=== PATIENT | female | born 2000 | race American Indian/Alaskan Native ===

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

== ENCOUNTER 2019-07-14 19:37 | Outpatient (CLI) | payer MEDICAID | END 2019-07-14 21:56 | disposition home or self-care (01) | LOC: TRG 19:37 → LD 19:38 → TRG 21:56 | PROVIDERS: ATTEND Obstetrics & Gynecology | DX: Z53.9 Procedure and treatment not carried out, unspecified reason (principal) ==

== ENCOUNTER 2019-07-15 01:25 | Inpatient (IN) | payer MEDICAID ==
[2019-07-15] MEDS ORDERED: TERBUTALINE 1 MG/1 ML INJ SUB-Q PRN (04:04)
[2019-07-15] MEDS ORDERED: LIDOCAINE (2%) 20 MG/1 ML VIAL 20 ML MDV INFILTRATI ONE (04:04)
[2019-07-15] MEDS ORDERED: TERBUTALINE 1 MG/1 ML INJ IVP PRN (04:04)
[2019-07-15] MEDS ORDERED: AMPICILLIN/NS 2 GM/100 ML 2 GM/100 ML BAG IV ONE (04:04)
[2019-07-15] MEDS ORDERED: ePHEDrine SULFATE 50 MG/1 ML INJ IV PRN ×2 (04:04→08:07)
[2019-07-15] MEDS ORDERED: OXYTOCIN 20 UNIT/1000ML DRIP 20 UNITS/1,000 ML BAG IV SCH ×2 (05:00→14:00)
[2019-07-15] MEDS: LACTATED RINGERS 1,000 ML IV SCH ×2 (06:10→09:28)
[2019-07-15] MEDS ORDERED: fentaNYL 100 MCG/2 ML INJ ONE (07:03)
[2019-07-15] MEDS ORDERED: fentaNYL 100 MCG/2 ML INJ IV ONE (07:30)
[2019-07-15 07:39] LABS: Hematocrit 30.5 % (30.3-42.9); Hemoglobin 9.9 gm/dl (10.1-14.3); Mean Corpuscular HGB Conc 32 % (30-34); Mean Corpuscular Volume 84 fl (79-97); Platelet Count 158 K/mm3 (140-440); Red Blood Count 3.64 M/mm3 (3.65-5.03); Red Cell Distribution Width 15.4 % (13.2-15.2)
[2019-07-15] MEDS ORDERED: NALOXONE 2 MG/2 ML INJ IV PRN (08:07)
--- NOTE | 2019-07-15 08:07 | Anesthesia Consultation ---
Anesthesia Consult and Med Hx Date of service: 07/15/19 - Airway Anesthetic Teeth Evaluation: Good ROM Head & Neck: Adequate Mental/Hyoid Distance: Adequate Mallampati Class: Class II Intubation Access Assessment: Good - Pulmonary Exam CTA: Yes - Cardiac Exam Cardiac Exam: RRR - Pre-Operative Health Status ASA Pre-Surgery Classification: ASA1, Emergency Proposed Anesthetic Plan: Epidural - Pulmonary Hx Asthma: No COPD: No Hx Pneumonia: No - Cardiovascular System Hx Hypertension: No - Central Nervous System Hx Seizures: No Hx Psychiatric Problems: No - Endocrine Hx Renal Disease: No Hx End Stage Renal Disease: No Hx Hypothyroidism: No Hx Hyperthyroidism: No - Hematic Hx Anemia: No Hx Sickle Cell Disease: No - Other Systems Hx Alcohol Use: No
[2019-07-15] MEDS ORDERED: BUPIVACAINE/PF (0.25%) 2.5 MG/ML 10 ML VIAL INFILTRATI ONE (08:11)
--- NOTE | 2019-07-15 08:37 | History and Physical Report ---
History of Present Illness Date of examination: 07/15/19 Date of admission: 07/15/19 04:56 Chief complaint: Labor History of present illness: Pt is a 19yo BF EDC 07/19/19; EGA 39 3/7 weeks presents to L&D complaining of RUC's q 3-4 mins. She received care at [facility] since 12 weeks and course has been unremarkable. records are available and GBS is Negative. Past History Past Medical History: no pertinent history Past Surgical History: no surgical history Family/Genetic History: none Social history: no significant social history, single - Obstetrical History Expected Date of Delivery: 07/19/19 Actual Gestation: 39 Week(s) 3 Day(s) : 1 Medications and Allergies Allergies Allergy/AdvReac Type Severity Reaction Status Date / Time No Known Allergies Allergy Verified 11/23/18 08:18 Home Medications Medication Instructions Recorded Confirmed Last Taken Type Vit-Fe Fumar-FA [ 1 tab PO QDAY 07/15/19 07/15/19 1 Day Ago History Vitamin] ~07/14/19 Active Meds: Active Medications Ephedrine Sulfate (Ephedrine Sulfate) 10 mg IV Q2M PRN PRN Reason: Hypotension Ephedrine Sulfate (Ephedrine Sulfate) 10 mg IV Q2M PRN PRN Reason: Hypotension Oxytocin/Sodium Chloride (Pitocin/Ns 20 Unit/1000ml Drip) 20 units in 1,000 mls @ 125 mls/hr IV DIRECT AALIYAH Lactated Ringer's (Lactated Ringers) 1,000 mls @ 125 mls/hr IV DIRECT AALIYAH Last Admin: 07/15/19 06:10 Dose: 1,200 mls/hr Documented by: Ampicillin Sodium (Ampicillin/Ns 1 Gm/50 Ml) 1 gm in 50 mls @ 100 mls/hr IV Q4HR AALIYAH; Protocol Fentanyl/Bupivacaine/Sodium Chlor (Fentanyl-Bupiv 2 Mcg/Ml-0.125%) 200 mcg in 100 mls @ 12 mls/hr EPIDURAL TITR AALIYAH; Protocol Naloxone HCl (Naloxone) 0.2 mg IV Q5M PRN PRN Reason: Respiratory sedation Terbutaline Sulfate (Brethine) 0.25 mg SUB-Q ONCE PRN PRN Reason: Hyperstimulation/Hypertonicity Terbutaline Sulfate (Brethine) 0.25 mg IVP ONCE PRN PRN Reason: Hyperstimulation/Hypertonicity Review of Systems All systems: negative - Vital Signs Vital signs: Vital Signs Pulse BP 77 143/94 07/15/19 01:44 07/15/19 01:44 Temp Pulse Resp BP Pulse Ox 98.9 F 78 142/81 100 07/15/19 05:20 07/15/19 08:32 07/15/19 08:31 07/15/19 08:32 - Physical Exam Breasts: Positive: deferred Cardiovascular: Regular rate Lungs: Positive: Clear to auscultation Genitourinary (Female): Positive: normal external genitalia Vagina: Positive: normal moisture Uterus: Positive: enlarged Extremities: Positive: normal - Obstetrical FHR: category 1 Uterine Contraction Monitor Mode: External Cervical Dilatation: 6 (per nurse) Cervical Effacement Percentage: 90 (per nurse) station: -1 Uterine Contraction Pattern: Regular Uterine Tone Measurement Phase: Contraction Uterine Contraction Intensity: Strong/Firm Results Result Diagrams: 07/15/19 07:04 Abnormal lab results 07/15/19 Range/Units 07:04 WBC 12.7 H (4.5-11.0) K/mm3 RBC 3.64 L (3.65-5.03) M/mm3 Hgb 9.9 L (10.1-14.3) gm/dl MCH 27 L (28-32) pg RDW 15.4 H (13.2-15.2) % All other labs normal. Assessment and Plan - Patient Problems (1) 39 weeks gestation of Onset Date: 07/15/19 Current Visit: Yes Status: Acute Plan to address problem: A: IUP @ 39 3/7 weeks in labor Asymptomatic anemia P: Admit to L&D for expectant vaginal delivery (2) Chronic blood loss anemia Onset Date: 07/15/19 Current Visit: Yes Status: Acute
[2019-07-15] MEDS ORDERED: fentaNYL-BUPIV 2 MCG/ML-0.125% 200 MCG/100 ML BAG EPIDURAL SCH (09:00)
[2019-07-15] MEDS: AMPICILLIN/NS 1 GM/50 ML 1 GM/50 ML BAG IV SCH ×2 (09:43→13:06)
[2019-07-15] MEDS ORDERED: OXYTOCIN DRIP 30 UNITS/500 ML BAG IV SCH (12:00)
--- NOTE | 2019-07-15 13:55 | Procedure Note ---
OB Delivery Note - Delivery Date of Delivery: 07/15/19 Surgeon: NEHA MTZ Estimated blood loss: 200cc - Vaginal Delivery presentation: vertex Delivery position: OA Intrapartum events: PROM->1hr before delivery, meconium Delivery induction: none Delivery augmentation: rupture of membranes, pitocin Delivery monitor: external FHT, external uterine Route of delivery: Delivery placenta: spontaneous Delivery cord: 3 umbilical vessels Episiotomy: none Delivery laceration: 2nd degree (perineal) Delivery repair: vicryl Anesthesia: epidural Delivery comments: delivered OA and placed on Mom's chest for [id number] bonding and delayed cord clamping, cut by Dad - Infant A at 1 minute: 8 at 5 minutes: 9 Gender: Female (4011gms)
[2019-07-15] MEDS ORDERED: WITCH HAZEL/ GLYCERIN PAD TP PRN (13:59)
[2019-07-15] MEDS ORDERED: PROMETHAZINE 25 MG TAB PO PRN (13:59)
[2019-07-15] MEDS ORDERED: MAGNESIUM HYDROXIDE (MOM) ORAL LIQD UDC PO PRN (13:59)
[2019-07-15] MEDS ORDERED: LANOLIN/ZINC/DIMETHICONE (LANSINOH) 7 GM TP PRN (13:59)
[2019-07-15] MEDS ORDERED: PROMETHAZINE 25 MG RECT SUPP PR PRN (13:59)
[2019-07-15] MEDS ORDERED: ACETAMINOPHEN 325 MG TAB PO PRN (13:59)
[2019-07-15] MEDS ORDERED: ONDANSETRON 4 MG/2 ML INJ IV PRN (13:59)
[2019-07-15] MEDS ORDERED: diphenhydrAMINE 25 MG CAP PO PRN (13:59)
[2019-07-15] MEDS: IBUPROFEN 600 MG TAB PO SCH ×2 (16:00→23:44)
[2019-07-15] MEDS: HYDROcodone/ACETAMINOPHEN 5-325 MG TAB PO PRN (18:16)
[2019-07-15] MEDS: DOCUSATE SODIUM 100 MG CAP PO SCH (23:44)
[2019-07-15] MEDS: FERROUS SULFATE 325 MG TAB PO SCH (23:44)
[2019-07-16 04:28] LABS: Hematocrit 25.6 % (30.3-42.9); Hemoglobin 8.1 gm/dl (10.1-14.3)
[2019-07-16] MEDS: IBUPROFEN 600 MG TAB PO SCH ×3 (05:26→21:24)
[2019-07-16] MEDS: PRENATAL VIT27-FE FUMARATE-FOLIC ACID VIT TAB PO SCH (09:31)
[2019-07-16] MEDS: FERROUS SULFATE 325 MG TAB PO SCH ×2 (09:31→21:24)
[2019-07-16] MEDS: DOCUSATE SODIUM 100 MG CAP PO SCH ×2 (09:31→21:24)
--- NOTE | 2019-07-16 13:54 | Progress Note ---
Assessment and Plan - Patient Problems (1) 39 weeks gestation of Onset Date: 07/15/19 Current Visit: Yes Status: Resolved (2) Chronic blood loss anemia Onset Date: 07/15/19 Current Visit: Yes Status: Chronic (3) (normal spontaneous vaginal delivery) Onset Date: 07/16/19 Current Visit: Yes Status: Resolved Plan to address problem: A: S/P - PPD #1 Doing well Asymptomatic anemia - stable P: May go home tomorrow. Subjective - Subjective Date of service: 07/16/19 Principal diagnosis: s/p - PPD #1 Interval history: Pt is feeling well without complaints. Bleeding improved. Patient reports: appetite normal, voiding normally, dizzy ambulation, flatus, a mbulating normally, no nauseated : doing well, nursing well, bottle feeding Objective - Vital Signs Latest vital signs: Vital Signs Temp Pulse Resp BP BP Pulse Ox 07/16/19 07:55 98 F 81 20 122/81 07/15/19 21:43 98.0 F 79 20 124/83 97 07/15/19 18:13 98.3 F 07/15/19 16:05 100.2 F H 80 146/88 99 07/15/19 14:17 87 99 07/15/19 14:12 102 H 100 07/15/19 14:07 84 100 07/15/19 14:02 88 98 07/15/19 13:58 75 159/83 07/15/19 13:57 89 100 07/15/19 13:56 93 H 158/83 Intake and Output 07/15/19 07/16/19 07/16/19 22:59 06:59 14:59 Intake Total 240 240 120 Output Total 1950 800 600 Balance -6884 -492 -480 Intake: Oral 240 240 120 Output: Urine 1950 800 600 Void 1950 800 600 Other: Total, Intake Amount 240 240 120 Total, Output Amount 600 800 600 # Voids Void 1 - Exam Breasts: Present: deferred Abdomen: Present: normal appearance, soft Uterus: Present: normal, firm, fundal height below umbilicus Extremities: Present: normal - Labs Labs: Abnormal lab results 07/16/19 Range/Units 04:05 Hgb 8.1 L (10.1-14.3) gm/dl Hct 25.6 L (30.3-42.9) % Laboratory Tests 07/15/19 07/15/19 07/15/19 07:04 07:04 07:04 WBC 12.7 H RBC 3.64 L Hgb 9.9 L Hct 30.5 MCV 84 MCH 27 L MCHC 32 RDW 15.4 H Plt Count 158 Syphilis IgG Antibody Non-reactive Blood Type A POSITIVE Antibody Screen Negative 07/16/19 04:05 WBC RBC Hgb 8.1 L Hct 25.6 L MCV MCH MCHC RDW Plt Count Syphilis IgG Antibody Blood Type Antibody Screen
--- NOTE | 2019-07-16 13:56 | Post Anesthesia Evaluation ---
- Post Anesthesia Evaluation Patient Participated: Yes Airway Patent: Yes Stable Respiratory Function: Yes Nausea/Vomiting: No Temp > 96.8F: Yes Pain Manageable: Yes Adequeate Hydration: Yes Anesthesia Complications: No Block Receding Appropriately: Yes Patient on Ventilator: No
[2019-07-16] MEDS ORDERED: MEASLES, MUMPS & RUBELLA 12,500 UNIT/0.5 ML VACCINE SUB-Q ONE (13:59)
[2019-07-16] MEDS ORDERED: TETANUS,DIPH,PERTUSS(ACELL) VACCINE 0.5 ML SYRINGE IM ONE (13:59)
[2019-07-16] MEDS: HYDROcodone/ACETAMINOPHEN 5-325 MG TAB PO PRN (15:52)
[2019-07-17] MEDS: IBUPROFEN 600 MG TAB PO SCH ×2 (06:36→12:44)
--- NOTE | 2019-07-17 08:42 | Discharge Summary ---
Providers - Providers Date of Admission: 07/15/19 04:56 Date of discharge: 07/17/19 Attending physician: NEHA MTZ Primary care physician: NEHA MTZ Hospitalization Reason for admission: active labor, rupture of membranes, IUP at term Delivery: Episiotomy: none Laceration: 2nd degree (perineal) Incision: normal Other procedures: none complications: none Discharge diagnosis: IUP at term delivered [place] baby: female Hospital course: Unremarkable. Condition at discharge: Good Disposition: DC-01 TO HOME OR SELFCARE - Discharge Diagnoses (1) 39 weeks gestation of Status: Resolved (2) Chronic blood loss anemia Status: Chronic (3) (normal spontaneous vaginal delivery) Status: Resolved Plan - Discharge Medications Prescriptions: Ferrous Sulfate [Feosol 325 MG tab] 325 mg PO BID #60 tablet Ibuprofen [Motrin 600 MG tab] 600 mg PO Q6H #30 tablet Vit-Fe Fumar-FA [ Vitamin] 1 each PO QDAY #30 tablet - Provider Discharge Summary Activity: routine, no sex for 6 weeks, no heavy lifting 4 weeks, no strenuous exercise Diet: routine Instructions: routine Additional instructions: [] Smoking cessation referral if applicable(refer to patient education folder for contact #) [] Refer to [facility]'s [facility] Booklet Call your doctor immediately for: * Fever > 100.5 * Heavy vaginal bleeding ( >1 pad per hour) * Severe persistent headache * Shortness of breath * Reddened, hot, painful area to leg or breast * Drainage or odor from incision. * Keep incision clean and dry at all times and follow doctor's instructions regarding bathing/showering - Follow up plan Follow up: NEHA MTZ MD [Primary Care Provider] - 6 Weeks
[2019-07-17] MEDS: PRENATAL VIT27-FE FUMARATE-FOLIC ACID VIT TAB PO SCH (11:37)
[2019-07-17] MEDS: FERROUS SULFATE 325 MG TAB PO SCH (11:37)
[2019-07-17] MEDS: DOCUSATE SODIUM 100 MG CAP PO SCH (11:37)
[2019-07-17 15:56] VITALS: BP 128/72
== END 2019-07-17 15:50 | disposition home or self-care (01) | DRG 775 ==
LOC: TRG 01:25 → LD 04:56 → OB 15:32
PROVIDERS: ADMIT Obstetrics & Gynecology; ATTEND Obstetrics & Gynecology
PROC: 10E0XZZ Delivery of Products of Conception, External Approach (ICD-10-PCS; principal; 2019-07-15)
PROC: 0KQM0ZZ Repair Perineum Muscle, Open Approach (ICD-10-PCS; 2019-07-15)
PROC: 3E0R3BZ Introduction of Anesthetic Agent into Spinal Canal, Percutaneous Approach (ICD-10-PCS; 2019-07-15)
PROC: 00HU33Z Insertion of Infusion Device into Spinal Canal, Percutaneous Approach (ICD-10-PCS; 2019-07-15)
PROC: 3E00X4Z Introduction of Serum, Toxoid and Vaccine into Skin and Mucous Membranes, External Approach (ICD-10-PCS; 2019-07-15)
DX: O42.92 Full-term premature rupture of membranes, unspecified as to length of time between rupture and onset of labor (principal); O99.02 Anemia complicating childbirth; O77.0 Labor and delivery complicated by meconium in amniotic fluid; D50.0 Iron deficiency anemia secondary to blood loss (chronic); Z3A.39 39 weeks gestation of pregnancy; Z37.0 Single live birth; Z23 Encounter for immunization; O70.1 Second degree perineal laceration during delivery
CPT/HCPCS: 36415; 85014; 85018; 85027; 86592; 86850; 86900; 86901; G0378; J0290; J2590; J3010; J7120

== ENCOUNTER 2021-09-14 09:09 | Emergency (ER) | payer MEDICAID ==
[2021-09-14 09:52] VITALS: BP 141/74
== END 2021-09-14 13:15 | disposition left against medical advice (07) ==
LOC: ED 09:09
DX: R42 Dizziness and giddiness (principal); Z53.21 Procedure and treatment not carried out due to patient leaving prior to being seen by health care provider